=== PATIENT | female | born 1995 | race Caucasian/White ===

== ENCOUNTER 2021-04-16 10:20 | Emergency (ER) | payer OTHER ==
[~2021-04-16] VITALS: Ht 167.6 cm; Wt 145.5 kg
[2021-04-16 10:22] VITALS: TEMP 98
[2021-04-16] MEDS ORDERED: NEURONTIN600 MG/TAB PO (10:27)
[2021-04-16] MEDS ORDERED: LITHOBID 3300 MG/TAB PO (10:28)
[2021-04-16] MEDS ORDERED: ZYRTEC 10MG10 MG PO (10:29)
[2021-04-16] MEDS ORDERED: LEXAPRO20 MG PO (10:29)
[2021-04-16] MEDS ORDERED: SYNTHROID 0.0.025 MG PO (10:30)
[2021-04-16] MEDS ORDERED: ZESTRIL 10MG10 MG PO (10:30)
[2021-04-16 12:19] VITALS: BP 120/52; PULSE 77
== END 2021-04-16 12:20 | disposition home or self-care (01) ==
LOC: COL.ER 10:20
DX: M54.5 Low back pain (principal)
CPT/HCPCS: J2360

== ENCOUNTER → 2021-09-03 | Outpatient (CLI) | payer OTHER ==
[~2021-09-03] MED LIST: LEXAPRO20 MG PO; LITHOBID 3300 MG/TAB PO; NEURONTIN600 MG/TAB PO; SYNTHROID 0.0.025 MG PO; ZESTRIL 10MG10 MG PO; ZYRTEC 10MG10 MG PO
== END ==
LOC: MHCPAIN 12:35
DX: M54.16 Radiculopathy, lumbar region (principal); M79.2 Neuralgia and neuritis, unspecified; M53.3 Sacrococcygeal disorders, not elsewhere classified
CPT/HCPCS: G0463

== ENCOUNTER 2022-02-11 10:30 | Outpatient (RCR) | payer OTHER | END 2022-02-16 | disposition home or self-care (01) | LOC: WSPT | DX: M54.50 Low back pain, unspecified (principal) ==

== ENCOUNTER → 2022-03-19 | Outpatient (RCR) | payer OTHER | END | disposition home or self-care (01) | LOC: WSPT | DX: M54.50 Low back pain, unspecified (principal) ==

== ENCOUNTER 2022-05-16 13:30 | Outpatient (RCR) | payer OTHER | END 2022-05-19 | disposition home or self-care (01) | LOC: WSPT | DX: M54.50 Low back pain, unspecified (principal) ==

== ENCOUNTER 2022-09-10 09:00 | Outpatient (RCR) | payer OTHER | END 2022-09-16 | disposition home or self-care (01) | LOC: WSPT | DX: M54.50 Low back pain, unspecified (principal) ==

== ENCOUNTER 2022-10-15 10:30 | Outpatient (RCR) | payer OTHER | END 2022-10-17 | disposition home or self-care (01) | LOC: WSPT | DX: M54.50 Low back pain, unspecified (principal) ==

== ENCOUNTER 2022-11-12 12:45 | Outpatient (RCR) | payer OTHER | END 2022-11-16 | disposition home or self-care (01) | LOC: WSPT | DX: M54.50 Low back pain, unspecified (principal) ==